=== PATIENT | female | born 1935 | race American Indian/Alaskan Native ===

== ENCOUNTER 2016-07-31 21:23 | Inpatient (IN) | payer OTHER ==
[2016-07-31 22:14] LABS: Basophils % (Auto) 0.3 % (0.0-1.8); Eosinophils % (Auto) 0.6 % (0.0-4.3); Mean Corpuscular HGB Conc 31 % (30-34); Mean Corpuscular Volume 80 fl (79-97); Platelet Count 393 K/mm3 (140-440); Red Blood Count 2.01 M/mm3 (3.65-5.03); Red Cell Distribution Width 16.9 % (13.2-15.2); White Blood Count 13.7 K/mm3 (4.5-11.0)
[2016-07-31 22:25] LABS: INR 1.05 (0.87-1.13)
[2016-07-31 22:26] LABS: Partial Thromboplastin Time 29.3 Sec. (24.2-36.6)
[2016-07-31 22:29] LABS: Hemoglobin 4.9 gm/dl (10.1-14.3)
[2016-07-31 22:30] LABS: Hematocrit 16.1 % (30.3-42.9); Mean Corpuscular Hemoglobin 25 pg (28-32)
[2016-07-31 22:33] LABS: Alanine Aminotransferase 5 units/L (7-56); Albumin 2.7 g/dL (3.9-5); Alkaline Phosphatase 78 units/L (35-129); Anion Gap 17 mmol/L; BUN/Creatinine Ratio 26.42; Bilirubin,Total < 0.20 mg/dL (0.1-1.2); Blood Urea Nitrogen 37 mg/dL (7-17); Carbon Dioxide 22 mmol/L (22-30); Chloride 95.9 mmol/L (98-107); Glucose 111 mg/dL (65-100); Potassium 5.8 mmol/L (3.6-5.0); Sodium 129 mmol/L (137-145); Total Protein 5.4 g/dL (6.3-8.2)
--- NOTE | 2016-07-31 23:03 | XRay Report ---
FINAL REPORT EXAM: XR CHEST ROUTINE 2V HISTORY: CHEST PAIN TECHNIQUE: PA and lateral views of the chest PRIORS: None. FINDINGS: Lines, tubes, and devices: N/A Lungs and pleura: Trachea is normal in position. Lungs are clear of infiltrate, pleural effusion, vascular congestion, or pneumothorax. Cardiomediastinal silhouette: Cardiac and mediastinal silhouettes are unremarkable. Other: Bony structures demonstrate a dextroscoliosis of the thoracic spine. IMPRESSION: No acute cardiopulmonary process seen.
--- NOTE | 2016-07-31 23:16 | Cat Scan Report ---
FINAL REPORT EXAM: CT HEAD/BRAIN WO CON HISTORY: numbness, falls COMPARISON: None available. TECHNIQUE: Axial images obtained skull base through vertex. FINDINGS: No acute intracranial hemorrhage, midline shift or pathologic extra axial fluid collection. Ventricles and cisterns are normal in size and configuration for the patient's age. Walden-white differentiation preserved. Calvarium grossly intact. Mild chronic small vessel ischemic disease. Mild mucosal thickening the paranasal sinuses. Mastoid air cells are clear. Probable prior cataract surgery. IMPRESSION: No grossly acute intracranial abnormality. Mild chronic small vessel ischemic disease.
--- NOTE | 2016-07-31 23:18 | Cat Scan Report ---
FINAL REPORT EXAM: CT CERVICAL SPINE WO CON HISTORY: numbness, falls COMPARISON: None available. TECHNIQUE: Axial images obtained through the cervical spine. Additional sagittal and coronal reformatted images were obtained. FINDINGS: Straightening of the normal lordotic curvature of the cervical spine. Cervical vertebral body heights are preserved. No acute fracture or traumatic subluxation. Odontoid process, articular pillars and occipital condyles are intact. Moderate severe loss of disc height C3-C4 through C6-C7 levels. Mild to moderate canal stenosis and moderate foramina ring at those levels due to endplate osteophyte, uncovertebral hypertrophy and facet changes. Prominent calcification of carotid siphons. Mild scarring at the lung apices. IMPRESSION: No acute fracture or subluxation of the cervical spine. There is straightening of the normal lordotic curvature which may relate to patient positioning or muscle spasm. Moderate degenerative changes.
[2016-07-31] MEDS ORDERED: NACL 0.9% 500 ML 500 ML IV ONE (23:26)
[2016-07-31 23:57] LABS: Urine Drugs of Abuse Note Disclamer
--- NOTE | 2016-07-31 23:59 | Emergency Department Report ---
HPI - General Chief Complaint: Neuro Symptoms/Deficit Time Seen by Provider: 07/31/16 22:49 - HPI HPI: This is a 80-year-old female presents to the emergency department from home with complaint of some generalized weakness, increased fatigue, recent falls over the past few days. The granddaughter went to check on her and thought that she was appearing as if she was having some difficulty speaking and /or was slurring her speech. She is not taken anything for symptoms prior to presentation. She has a past medical history of coronary artery disease with NJ , CVA, and was recently treated at another hospital for pancreatitis and some unknown "liver swelling." She has some mild abdominal discomfort. There is a history of rectal bleeding in the past but she denies any obvious bleeding now but does admit to some darker stools. The patient does not speak any Green[place]ic but the mid-level provider, Matthias Madsen, was nice enough to translate. ED Past Medical Hx - Past Medical History Previous Medical History?: Yes Additional medical history: Liver swelling? NJ, CAD, Heart Cath, CVA, Pancreatitis - Surgical History Past Surgical History?: Yes Additional Surgical History: Heart. Reversed Colostomy - Social History Smoking Status: Never Smoker Substance Use Type: None - Medications Home Medications: Home Medications Medication Instructions Recorded Confirmed Last Taken Type Aldactone 100 mg PO DAILY 08/01/16 08/01/16 Unknown History Coreg 12.5 mg PO BID 08/01/16 08/01/16 Unknown History Dicyclomine 20 mg PO DAILY 08/01/16 08/01/16 Unknown History Enalapril Maleate 20 mg PO DAILY 08/01/16 08/01/16 Unknown History Plavix 75 mg PO DAILY 08/01/16 08/01/16 Unknown History ED Review of Systems ROS: Stated complaint: NUMBNESS IN ARMS AND TONUGE Other details as noted in HPI Comment: Unobtainable due to pts medical conditions Constitutional: weakness. denies: chills, fever Eyes: denies: eye pain, eye discharge, vision change ENT: denies: ear pain, throat pain Respiratory: denies: cough, shortness of breath, wheezing Cardiovascular: denies: chest pain, palpitations Gastrointestinal: abdominal pain, melena. denies: nausea, vomiting Genitourinary: denies: urgency, dysuria, discharge Musculoskeletal: denies: back pain, joint swelling, arthralgia Skin: denies: rash, lesions Neurological: weakness, paresthesias. denies: headache Physical Exam - Physical Exam Vital Signs: Vital Signs 07/31/16 21:35 Temperature 98.3 F Pulse Rate 70 Respiratory 14 Rate Blood Pressure 110/50 [Right] O2 Sat by Pulse 100 Oximetry Physical Exam: GENERAL: The patient is well-developed well-nourished. HEENT: Normocephalic. Atraumatic. Extraocular motions are intact. Patient has moist mucous membranes. Pupils equal reactive to light bilaterally. NECK: Supple. Trachea is midline. CHEST/LUNGS: Clear to auscultation. There is no respiratory distress noted. HEART/CARDIOVASCULAR: Regular. There is no tachycardia. There is no gallop rub or murmur. ABDOMEN: Abdomen is soft, nontender. Patient has normal bowel sounds. There is no abdominal distention. SKIN: There is no rash. There is no edema. There is no diaphoresis. NEURO: The patient is awake, alert, and oriented. The patient is cooperative. The patient has no focal neurologic deficits. The patient has normal speech. No pronator drift. No dysmetria. MUSCULOSKELETAL: There is no tenderness or deformity. There is no limitation range of motion. There is no evidence of acute injury. RECTAL: No gross blood. Stool was positive on guaiac testing. ED Course Vital Signs 07/31/16 21:35 Temperature 98.3 F Pulse Rate 70 Respiratory 14 Rate Blood Pressure 110/50 [Right] O2 Sat by Pulse 100 Oximetry - Consultations Consultation #1: I spoke with the record press operator regarding the patient's EKG findings and he does not feel that it appears consistent with any ST elevation NJ. 07/31/16 23:58 ED Medical Decision Making - Lab Data Result diagrams: 08/01/16 07:00 08/01/16 07:00 - EKG Data -: EKG Interpreted by Me EKG shows normal: sinus rhythm, axis, intervals, QRS complexes (ST depressions and T-wave inversions to the lateral leads, there is a mild ST elevation in aVR) - EKG Data When compared to previous EKG there are: previous EKG unavailable Interpretation: other (sinus rhythm, 68 bpm, normal axis, ST depression in lateral leads and T-wave inversion in lateral leads, slight ST elevation in aVR. ) - Radiology Data Radiology results: report reviewed, image reviewed interpreted by me: Chest x-ray did not show any acute process. Heart is normal shape and size. No effusions. No pneumothorax. No signs of pneumonia seen. Abdominal x-ray does not show any obvious signs of obstruction. There are some air-fluid levels throughout the abdomen. CT of the head does not show any acute process including no hemorrhage, mass, shift, diffuse edema or skull fracture. CT of the cervical spine does not show any fractures, subluxation or any acute process. - Medical Decision Making 80-year-old female presents with a few days of some increased fatigue and weakness, and possibly some slurred speech. Patient does not appear to have any obvious signs of stroke at this time and patient is outside the window for any TPA. There was some history of rectal bleeding so a guaiac testing was done and was positive but there was no gross blood seen. Patient had hemoglobin of 4.8 so some of this could've been symptomatically anemia. She was transfused 3 units of packed red blood cells. CT of the head and cervical spine did not show any acute process. Patient had hyperkalemia, some hyponatremia. She was admitted to the hospital for further evaluation and treatment accepted for admission by the hospitalist, Dr. Llanos - Differential Diagnosis CVA, symptomatically anemia, NJ, malignancy, hemorrhoids Critical Care Time: No Critical care attestation.: If time is entered above; I have spent that time in minutes in the direct care of this critically ill patient, excluding procedure time. ED Disposition Clinical Impression: Symptomatic anemia, Weakness, Rectal bleed, Hyponatremia, Renal insufficiency, Hyperkalemia UTI (urinary tract infection) Qualifiers: Urinary tract infection type: acute cystitis Hematuria presence: without hematuria Qualified Code(s): N30.00 - Acute cystitis without hematuria Disposition: OP ADMIT IP TO THIS HOSP Is pt being admited?: Yes Condition: Stable
[2016-08-01 00:25] LABS: Bacteria,Urine 4+ /HPF (Negative); Bilirubin,Urine NEG (Negative); Blood,Urine LG (Negative); Ketones,Urine NEG (Negative); Leukocyte Esterase,Urine LG (Negative); Mucus,Urine FEW /HPF; Nitrite,Urine NEG (Negative); Protein,Urine <15 mg/dL mg/dL (Negative); Urobilinogen,Urine < 2.0 mg/dL (<2.0)
[2016-08-01] MEDS ORDERED: ROCEPHIN/NS 1 GM/50 ML 1 GM/50 ML BAG IV ONE (00:38)
[2016-08-01] MEDS ORDERED: KIONEX PO ONE (00:39)
[2016-08-01] MEDS ORDERED: PROVENTIL IH ONE ×2 (00:39→01:05)
--- NOTE | 2016-08-01 04:39 | Admit Criteria Form ---
Admission Criteria Documentation: URINARY COMPLICATIONS Clinical Indications for Inpatient Care (Place 'X' for any and all applicable criteria): Ongoing inpatient care may be indicated for urinary complications with ANY ONE of the following: [X ]I. Urinary tract infection requiring inpatient care as indicated by ANY ONE of the following(8)(19)(20): [ ]a) Severe symptoms (eg, high fever, severe pain) [ ]b) Vomiting or dehydration requiring ongoing inpatient care [X ]c) IV antibiotic needs that cannot be managed at lower level of care [ ]d) Hemodynamic instability [ ]e) Obstruction of collecting system by stone or tumor [ ]II. Urinary retention requiring drainage or surgery (3)(4)(5)(17)(18) [ ]III. Renal failure (Use Renal Failure Criteria for further information.) [ ]IV. Oliguria(30) [ ]V. Post obstructive diuresis requiring close monitoring of urine output and intravenous compensation for excessive fluid losses(33) Extended stay beyond goal length of stay for primary condition may be needed until ALL of the following are present(3)(4)(5)(8): [ ]a) Renal function (creatinine) at baseline, or daily decreases in creatinine consistent with renal function return [ ]b) Voiding adequately or with urinary catheter or percutaneous suprapubic tube and management regimen in place that is performable at lower level of care. [ ]c) Urine output adequate [ ]d) Fever absent or resolving [ ]e) Infection absent or treatable at next level of care The original [employer] content created by [employer] has been revised. The portions of the content which have been revised are identified through the use of italic text or in bold, and [facility] has neither reviewed nor approved the modified material. All other unmodified content is copyright [employer] Please see references footnoted in the original [employer] edition 2016 Admission Criteria Met: Yes
[2016-08-01] MEDS ORDERED: NACL 0.9% 500 ML 500 ML ONE (04:52)
--- NOTE | 2016-08-01 06:36 | Event Note ---
Date: 08/01/16 See H/p in reports Acute Anemia Hyponatremia Hyperkalemia UTI CAD CVA
[2016-08-01] MEDS: NACL 0.9% 1000 ML 1,000 ML IV SCH (07:08)
[2016-08-01 07:53] LABS: Albumin 2.5 g/dL (3.9-5); Alkaline Phosphatase 63 units/L (35-129); Anion Gap 15 mmol/L; Blood Urea Nitrogen 30 mg/dL (7-17); Calcium 7.7 mg/dL (8.4-10.2); Carbon Dioxide 22 mmol/L (22-30); Chloride 103.4 mmol/L (98-107); Glucose 100 mg/dL (65-100); Potassium 5.1 mmol/L (3.6-5.0); Sodium 135 mmol/L (137-145)
[2016-08-01 07:55] LABS: Total Iron Binding Capacity 361.2 mcg/dL (250-450)
--- NOTE | 2016-08-01 08:21 | History and Physical Report ---
CHIEF COMPLAINT: 1. Severe weakness. 2. Frequent falls over the past few days. HISTORY OF PRESENT ILLNESS: This 80-year-old female brought in for feeling severe weakness and increasing fatigue over the last few days, also falling frequently. She granddaughter was visiting her grandmother and thought she was having difficulty speaking and slurring of speech and brought her to the Emergency Room thinking that the patient is having a stroke. The patient has history of coronary artery disease and cerebrovascular accident in the past. Also, pancreatitis and GI bleeding in the past. Denies any bleeding now, but has dark stools. Also occult blood positive in the Emergency Room. PAST MEDICAL HISTORY: Significant for coronary artery disease, cerebrovascular accident, pancreatitis, acute MS and a questionable GI bleed. Language barrier present for proper history. PAST SURGICAL HISTORY: Reverse colostomy. SOCIAL HISTORY: Does not smoke. No alcohol, no recreational drugs. FAMILY HISTORY: Significant for no hypertension, no diabetes. REVIEW OF SYSTEMS: CONSTITUTIONAL: No weight loss, no weight gain, no fever, no chills. HEENT: No sore throat, no postnasal drip. No diplopia. CARDIOVASCULAR AND RESPIRATORY: Shortness of breath was present with minimal exertion. No chest pain. No wheezing. No cough. GASTROINTESTINAL: No nausea, no vomiting, no diarrhea. GENITOURINARY: No dysuria, no flank pain. MUSCULOSKELETAL: No joint pains. CENTRAL NERVOUS SYSTEM: No syncope, no seizures. No slurred speech during examination. A 14-point review of systems was done. PHYSICAL EXAMINATION: GENERAL: Elderly female lying in bed in no acute distress. VITAL SIGNS: Temperature 98.3, pulse is 70, respirations 14, blood pressure 110/50, sats 100%. HEENT: Pale mucous membranes. Tongue is pale. NECK: Supple, no lymphadenopathy, no thyromegaly. LUNGS: Clear to auscultation and percussion. Good air entry. CARDIOVASCULAR: S1, S2 heard. No gallop, no murmur, no rub. Apical impulse in left fifth intercostal space and midclavicular line. ABDOMEN: Soft and benign. No hepatosplenomegaly. No guarding, no rigidity. Hernial orifices are normal. EXTREMITIES: Good pedal pulses. No pedal edema. CENTRAL NERVOUS SYSTEM: Alert and oriented x 4, nonfocal exam. LABORATORY DATA: Significant for hemoglobin of 4.9, hematocrit of 16.1, white count of 13,700, platelet count of 393,000. Protime is 13.6, INR is 1.05, PTT is 29.3. Sodium is 129, potassium is 5.8, chloride is 95.9, bicarbonate is 22, BUN and creatinine 37 and 1.4. Lactic acid is 0.9. Glucose is 111. Total protein is 5.4, albumin is 2.7. Urine shows 43 white cells. Drug screen was negative. EKG shows normal sinus rhythm with ST depression and T-wave inversions in the lateral leads and mild ST elevation in AVR. Previous EKG on arrival. ASSESSMENT AND PLAN: 1. Acute anemia, probably secondary to gastrointestinal bleed or nutritional. The patient's MCH is low, MCV is normal. I will order iron studies, folate and B12 levels. Also, transfuse 3 to 4 units of packed red blood cells. Order for 3 units now. 2. Gastrointestinal bleed, high possibility. Occult blood positive. No bright red blood per rectum. We will ask for GI evaluation by Dr. Ritter in [facility]. IV Protonix in the meantime. 3. Hyponatremia, mild. Sodium level was 129. Normal saline for now, 3% saline if necessary. 4. Hyperkalemia. The patient was given Kayexalate x 1 in the ER. We will recheck the potassium. The patient was not given any calcium chloride or sodium bicarbonate or dextrose 50 with insulin. 5. Urinary tract infection. Rocephin 2 grams IV piggyback q. 24 started. Pending cultures. 6. Coronary artery disease by history. EKG was abnormal. Once the patient is stable, we will get Lexiscan. No Lexiscan ordered for tomorrow. 7. Cerebrovascular accident. Physical therapy consult was ordered. PT to evaluate and treat. 8. Deep venous thrombosis prophylaxis, SCDs only for the time being. In summary, the patient has acute anemia, possibly secondary to nutrition versus GI bleed and hyponatremia, hyperkalemia and urinary tract infection. Also, history of moderate malnutrition. Dietitian consult requested for nutrition. JOB# [id number] VSM/NTS
[2016-08-01 08:25] LABS: Alanine Aminotransferase < 5 units/L (7-56)
--- NOTE | 2016-08-01 09:49 | XRay Report ---
ABDOMEN, 2 views: History: Abdominal pain. No comparison. There are multiple small and medium size fluid levels on the upright view. No convincing dilated bowel or free air. There is moderate stool in the colon. The lung bases are clear. The bony structures are osteopenic. Levoscoliosis in the lumbar region is noted. IMPRESSION: Scattered fluid levels in the abdomen. Consider a mild ileus or gastroenteritis.
[2016-08-01] MEDS ORDERED: PROTONIX IV SCH (10:00)
[2016-08-01] MEDS ORDERED: NON-FORMULARY (Coreg 12.5 MG) PO SCH (10:00)
[2016-08-01] MEDS ORDERED: DICYCLOMINE 20 MG PO SCH (10:00)
[2016-08-01] MEDS ORDERED: ENALAPRIL MALEATE 20 MG PO SCH (10:00)
[2016-08-01] MEDS: COREG PO SCH ×2 (10:01→22:49)
[2016-08-01] MEDS: ZESTRIL PO SCH (10:02)
[2016-08-01 10:11] LABS: Hematocrit 18.1 % (30.3-42.9); Hemoglobin 5.8 gm/dl (10.1-14.3)
[2016-08-01] MEDS: ROCEPHIN/NS 1 GM/50 ML 1 GM/50 ML BAG IV SCH (11:33)
[2016-08-01] MEDS: BENTYL PO SCH (11:34)
--- NOTE | 2016-08-01 14:21 | Gastroenterology Consultation ---
History of Present Illness - Reason for Consult Consult date: 08/01/16 occult gi bleeding Requesting physician: ALEM CURRY - History of Present Illness The patient is a 80-year-old female from [facility] who has the family brought in because of progressive weakness. She was found to have a hemoglobin of 4.7 with an MCV of 80. On further questioning the patient has been having intermittent black stools for the past year. She denies any passage of bright red blood per rectum. The patient does have meal trigger diarrhea reports having a CT scan done and [facility] to evaluate this complaint. There were no abnormal findings according to the family. She has lost approximately 20 pounds over 60 years but reports a pretty good appetite overall. Prior history of peptic ulcer disease. The patient's never had an upper endoscopy or colonoscopy. There is no family history of colon cancer. He has been on Plavix because of a previous heart attack approximately 4 months ago. The patient has had no recent chest pain or shortness of breath. Past History Past Medical History: CAD Past Surgical History: No surgical history Social history: lives with family, smoking (her history of smoking), alcohol abuse (remote history of alcohol use.) Family history: no significant family history Medications and Allergies Allergies Allergy/AdvReac Type Severity Reaction Status Date / Time No Known Allergies Allergy Verified 07/31/16 21:46 Home Medications Medication Instructions Recorded Confirmed Last Taken Type Aldactone 100 mg PO DAILY 08/01/16 08/01/16 Unknown History Coreg 12.5 mg PO BID 08/01/16 08/01/16 Unknown History Dicyclomine 20 mg PO DAILY 08/01/16 08/01/16 Unknown History Enalapril Maleate 20 mg PO DAILY 08/01/16 08/01/16 Unknown History Plavix 75 mg PO DAILY 08/01/16 08/01/16 Unknown History Active Meds: Active Medications Carvedilol (Coreg) 12.5 mg PO BID [facility] Last Admin: 08/01/16 10:01 Dose: Not Given Dicyclomine HCl (Bentyl) 20 mg PO DAILY [facility] Last Admin: 08/01/16 11:34 Dose: Not Given Sodium Chloride (Nacl 0.9% 1000 Ml) 1,000 mls @ 75 mls/hr IV DIRECT [facility] Last Admin: 08/01/16 07:08 Dose: 75 mls/hr Ceftriaxone Sodium (Rocephin/Ns 1 Gm/50 Ml) 1 gm in 50 mls @ 100 mls/hr IV Q24HR [facility] PRN Reason: Protocol Last Admin: 08/01/16 11:33 Dose: Not Given Lisinopril (Zestril) 20 mg PO QDAY [facility] Last Admin: 08/01/16 10:02 Dose: Not Given Pantoprazole Sodium (Protonix) 40 mg IV BID [facility] Last Admin: 08/01/16 11:33 Dose: Not Given Review of Systems - Review of Systems Constitutional: weight loss, no fever, no chills Eyes: no change in vision Ears, Nose, Throat: no decreased hearing, no difficulty swallowing, no epistaxis Breasts: deferred Cardiovascular: no chest pain, no edema, no shortness of breath Respiratory: no cough, no shortness of breath, no wheezing, no home oxygen Gastrointestinal: diarrhea, melena, no abdominal pain, no nausea, no vomiting, no constipation, no change in bowel habits, no BRBPR, no hematochezia Rectal: no pain, no incontinence Female Genitourinary: deferred Musculoskeletal: no gait dysfunction, no joint pain, no muscle pain Integumentary: no rash, no pruritis, no jaundice Neurological: no paralysis, no weakness, no parasthesias Psychiatric: no anxiety, no memory loss Endocrine: no cold intolerance Hematologic/Lymphatic: no easy bruising, no easy bleeding Exam - Constitutional Vital Signs: Temp Pulse Resp BP Pulse Ox 98.5 F 65 18 94/41 100 08/01/16 07:00 08/01/16 07:00 08/01/16 07:00 08/01/16 10:02 08/01/16 11:43 General appearance: no acute distress, well-nourished - EENT Eyes: PERRL ENT: hearing intact, clear oral mucosa, dentition normal - Neck Neck: supple, normal ROM, no masses or JVD - Respiratory Respiratory effort: normal Respiratory: bilateral: CTA - Breasts Breasts: deferred - Cardiovascular Rhythm: regular Heart Sounds: Present: S1 & S2. Absent: gallop, rub Extremities: pulses intact, No edema, normal color, Full ROM - Gastrointestinal General gastrointestinal: Present: soft, non-tender, non-distended, normal bowel sounds. Absent: hepatomegaly, splenomegaly, mass Rectal Exam: deferred - Genitourinary Female Genitourinary: deferred - Integumentary Integumentary: Present: clear, warm, dry - Neurologic Neurological: alert and oriented x3 - Psychiatric Psychiatric: appropriate mood/affect, intact judgment & insight, memory intact - Labs CBC & Chem 7: 08/01/16 07:00 08/01/16 07:00 Lab Results: Laboratory Results - last 24 hr 08/01/16 08/01/16 08/01/16 00:44 00:44 00:44 Hgb Hct Sodium Potassium Chloride Carbon Dioxide Anion Gap BUN Creatinine Estimated GFR BUN/Creatinine Ratio Glucose Lactic Acid 2.10 H* Calcium Iron TIBC % Saturation Transferrin Total Bilirubin AST ALT Alkaline Phosphatase Troponin T < 0.010 Total Protein Albumin Albumin/Globulin Ratio Vitamin B12 Blood Type O POSITIVE JOEL Antibody Screen Negative Crossmatch See Detail 08/01/16 08/01/16 08/01/16 07:00 07:00 07:00 Hgb Hct Sodium 135 L Potassium 5.1 H Chloride 103.4 Carbon Dioxide 22 Anion Gap 15 BUN 30 H Creatinine 1.2 Estimated GFR 53 BUN/Creatinine Ratio 25.00 Glucose 100 Lactic Acid Calcium 7.7 L Iron 46 TIBC 361.20 % Saturation 12.74 Transferrin 258 Total Bilirubin 0.30 AST 9 ALT < 5 L Alkaline Phosphatase 63 Troponin T < 0.010 Total Protein 5.0 L Albumin 2.5 L Albumin/Globulin Ratio 1.0 Vitamin B12 Blood Type JOEL Antibody Screen Crossmatch 08/01/16 08/01/16 07:00 07:00 Hgb 5.8 L* Hct 18.1 L* Sodium Potassium Chloride Carbon Dioxide Anion Gap BUN Creatinine Estimated GFR BUN/Creatinine Ratio Glucose Lactic Acid Calcium Iron TIBC % Saturation Transferrin Total Bilirubin AST ALT Alkaline Phosphatase Troponin T Total Protein Albumin Albumin/Globulin Ratio Vitamin B12 706.1 Blood Type JOEL Antibody Screen Crossmatch Assessment and Plan - Patient Problems (1) Renal insufficiency Current Visit: Yes Status: Acute (2) Symptomatic anemia Current Visit: Yes Status: Acute (3) Melena Current Visit: Yes Status: Acute Plan to address problem: Plan for upper and lower endoscopy prior to leaving the hospital. Presently she has been partially transfused. The patient currently does not have an IV access to complete further transfusion and the studies may therefore be delayed. I have discussed the nature and purpose of the procedure as well as risks benefits and alternatives with the patient's family.
--- NOTE | 2016-08-01 14:30 | Progress Note ---
Assessment and Plan Assessment and plan: Patient is 80-year-old Anguillan-speaking woman with a history of [place], CVA, pancreatitis, coronary artery disease who presents with weakness, fatigue. Guaiac positive with a hemoglobin of 4.9. 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 Follow up on weakness. Overnight uneventful. No cp, sob, n/v or severe headaches. Imaging, old records, testing, labs, nursing notes reviewed. Patient has been losing weight unintentionally, unspecified amount. Hospitalist Physical - Physical exam Narrative exam: GEN: Cachectic NAD, AWAKE, ALERT, ORIENTATED x 3 CVS: RRR, NORMAL S1S2 LUNGS/CHEST: CTA B, NORMAL CHEST EXPANSION B, GOOD AIR ENTRY B ABD: SOFT, NTND, GBS, NO REBOUND OR GUARDING EXT/SKIN: NO SIGNIFICANT EDEMA OR RASH MSK: FROM X 4 EXTREMITIES NEURO: CN 2-12 GROSSLY INTACT, NO FOCAL DEFICITS PSY: CALM - Constitutional Vitals: Temp Pulse Resp BP Pulse Ox 98.5 F 65 18 94/41 100 08/01/16 07:00 08/01/16 07:00 08/01/16 07:00 08/01/16 10:02 08/01/16 11:43 Results - Labs CBC & Chem 7: 08/01/16 07:00 08/01/16 07:00 Labs: Laboratory Last Values WBC 13.7 K/mm3 (4.5-11.0) H 07/31/16 22:02 RBC 2.01 M/mm3 (3.65-5.03) L 07/31/16 22:02 Hgb 5.8 gm/dl (10.1-14.3) L* 08/01/16 07:00 Hct 18.1 % (30.3-42.9) L* 08/01/16 07:00 MCV 80 fl (79-97) 07/31/16 22:02 MCH 25 pg (28-32) L 07/31/16 22:02 MCHC 31 % (30-34) 07/31/16 22:02 RDW 16.9 % (13.2-15.2) H 07/31/16 22:02 Plt Count 393 K/mm3 (140-440) 07/31/16 22:02 Lymph % (Auto) 14.7 % (13.4-35.0) 07/31/16 22:02 [place] % (Auto) 5.8 % (0.0-7.3) 07/31/16 22:02 Eos % (Auto) 0.6 % (0.0-4.3) 07/31/16 22:02 Baso % (Auto) 0.3 % (0.0-1.8) 07/31/16 22:02 Lymph # 2.0 K/mm3 (1.2-5.4) 07/31/16 22:02 [place] # 0.8 K/mm3 (0.0-0.8) 07/31/16 22:02 Eos # 0.1 K/mm3 (0.0-0.4) 07/31/16 22:02 Baso # 0.0 K/mm3 (0.0-0.1) 07/31/16 22:02 Seg Neutrophils % 78.6 % (40.0-70.0) H 07/31/16 22:02 Seg Neutrophils # 10.8 K/mm3 (1.8-7.7) H 07/31/16 22:02 PT 13.6 Sec. (12.2-14.9) 07/31/16 22:02 INR 1.05 (0.87-1.13) 07/31/16 22:02 APTT 29.3 Sec. (24.2-36.6) 07/31/16 22:02 Sodium 135 mmol/L (137-145) L 08/01/16 07:00 Potassium 5.1 mmol/L (3.6-5.0) H 08/01/16 07:00 Chloride 103.4 mmol/L (98-107) 08/01/16 07:00 Carbon Dioxide 22 mmol/L (22-30) 08/01/16 07:00 Anion Gap 15 mmol/L 08/01/16 07:00 BUN 30 mg/dL (7-17) H 08/01/16 07:00 Creatinine 1.2 mg/dL (0.7-1.2) 08/01/16 07:00 Estimated GFR 53 ml/min 08/01/16 07:00 BUN/Creatinine Ratio 25.00 % 08/01/16 07:00 Glucose 100 mg/dL (65-100) 08/01/16 07:00 Lactic Acid 2.10 mmol/L (0.7-2.0) H* 08/01/16 00:44 Calcium 7.7 mg/dL (8.4-10.2) L 08/01/16 07:00 Magnesium 1.80 mg/dL (1.7-2.3) 07/31/16 22:02 Iron 46 ug/dL (37-170) 08/01/16 07:00 TIBC 361.20 mcg/dL (250-450) 08/01/16 07:00 % Saturation 12.74 % 08/01/16 07:00 Transferrin 258 mg/dl (192-382) 08/01/16 07:00 Total Bilirubin 0.30 mg/dL (0.1-1.2) 08/01/16 07:00 AST 9 units/L (5-40) 08/01/16 07:00 ALT < 5 units/L (7-56) L 08/01/16 07:00 Alkaline Phosphatase 63 units/L (35-129) 08/01/16 07:00 Troponin T < 0.010 ng/mL (0.00-0.029) 08/01/16 07:00 Total Protein 5.0 g/dL (6.3-8.2) L 08/01/16 07:00 Albumin 2.5 g/dL (3.9-5) L 08/01/16 07:00 Albumin/Globulin Ratio 1.0 % 08/01/16 07:00 Lipase 29 units/L (13-60) 07/31/16 22:02 Vitamin B12 706.1 pg/mL (211-911) 08/01/16 07:00 TSH 2.390 mlU/mL (0.270-4.200) 07/31/16 22:02 Urine Color Yellow (Yellow) 07/31/16 Unknown Urine Turbidity Cloudy (Clear) 07/31/16 Unknown Urine pH 6.0 (5.0-7.0) 07/31/16 Unknown Ur Specific [place] 1.006 (1.003-1.030) 07/31/16 Unknown Urine Protein <15 mg/dl mg/dL (Negative) 07/31/16 Unknown Urine Glucose (UA) Neg mg/dL (Negative) 07/31/16 Unknown Urine Ketones Neg mg/dL (Negative) 07/31/16 Unknown Urine Blood Lg (Negative) 07/31/16 Unknown Urine Nitrite Neg (Negative) 07/31/16 Unknown Urine Bilirubin Neg (Negative) 07/31/16 Unknown Urine Urobilinogen < 2.0 mg/dL (<2.0) 07/31/16 Unknown Ur Leukocyte Esterase Lg (Negative) 07/31/16 Unknown Urine WBC (Auto) 43.0 /HPF (0.0-6.0) H 07/31/16 Unknown Urine RBC (Auto) 18.0 /HPF (0.0-6.0) 07/31/16 Unknown U Epithel Cells (Auto) 1.0 /HPF (0-13.0) 07/31/16 Unknown Urine Bacteria (Auto) 4+ /HPF (Negative) 07/31/16 Unknown Urine Mucus Few /HPF 07/31/16 Unknown Salicylates < 0.3 mg/dL (2.8-20.0) L 07/31/16 22:02 Urine Opiates Screen Presumptive negative 07/31/16 Unknown Urine Methadone Screen Presumptive negative 07/31/16 Unknown Acetaminophen < 15.0 ug/mL (10.0-30.0) 07/31/16 22:02 Ur Barbiturates Screen Presumptive negative 07/31/16 Unknown Ur Phencyclidine Scrn Presumptive negative 07/31/16 Unknown Ur Amphetamines Screen Presumptive negative 07/31/16 Unknown U Benzodiazepines Scrn Presumptive negative 07/31/16 Unknown Urine Cocaine Screen Presumptive negative 07/31/16 Unknown U Marijuana (THC) Screen Presumptive negative 07/31/16 Unknown Drugs of Abuse Note Disclamer 07/31/16 Unknown Plasma/Serum Alcohol < 0.01 gm% (0-0.07) 07/31/16 22:02 Blood Type O POSITIVE 08/01/16 00:44 JOEL Antibody Screen Negative 08/01/16 00:44 Crossmatch See Detail 08/01/16 00:44
[2016-08-01] MEDS ORDERED: GOLYTELY PO SCH ×2 (15:00→19:00)
[2016-08-01] MEDS ORDERED: ROCEPHIN/NS 2 GM/100 ML 2 GM/100 ML BAG IV SCH (22:00)
[2016-08-01] MEDS: PROTONIX PO SCH (22:48)
[2016-08-02 07:20] LABS: Hematocrit 26.1 % (30.3-42.9); Mean Corpuscular HGB Conc 35 % (30-34); Mean Corpuscular Hemoglobin 29 pg (28-32); Mean Corpuscular Volume 83 fl (79-97); Platelet Count 350 K/mm3 (140-440); Red Blood Count 3.15 M/mm3 (3.65-5.03); Red Cell Distribution Width 16.8 % (13.2-15.2); White Blood Count 7.4 K/mm3 (4.5-11.0)
[2016-08-02 07:37] LABS: Anion Gap 23 mmol/L; BUN/Creatinine Ratio 15.55; Blood Urea Nitrogen 14 mg/dL (7-17); Calcium 8.2 mg/dL (8.4-10.2); Carbon Dioxide 22 mmol/L (22-30); Chloride 102.8 mmol/L (98-107); Glucose 89 mg/dL (65-100); Potassium 4.3 mmol/L (3.6-5.0); Sodium 143 mmol/L (137-145)
[2016-08-02] MEDS: COREG PO SCH ×2 (10:00→21:37)
[2016-08-02] MEDS: PROTONIX PO SCH ×2 (10:00→21:28)
--- NOTE | 2016-08-02 10:06 | Progress Note ---
Assessment and Plan Assessment and plan: Patient is 80-year-old Iraqi-speaking woman with a history of [place], CVA, pancreatitis, coronary artery disease who presents with weakness, fatigue. Guaiac positive with a hemoglobin of 4.9. -Acute GI blood loss anemia status post blood transfusion: Consulted gastroenterology, monitor H&H closely -Hyperkalemia, mild, continue to monitor -Severe protein calorie malnutrition with albumin 2.5: Consult Dietitian -Hyponatremia, dehydration: ivf -Hypotension, mild, this maybe her baseline -Unintentional weight lost -DVT prophylaxis: SCDs only due to GI blood loss Called and d/w GI nurse practitioner, Sabine==>EGD and colonoscopy today? Iraqi Language Lined Used. ?Dementia or some form of cognitive impairment. Anticipate discharge tomorrow. History Interval history: Iraqi Language Lined Used. ?Dementia or some form of cognitive impairment. Patient seen and examined. Follow up on weakness. Overnight uneventful. No cp, sob, n/v or severe headaches. Imaging, old records, testing, labs, nursing notes reviewed. Patient has been losing weight unintentionally, unspecified amount. Hospitalist Physical - Physical exam Narrative exam: GEN: Cachectic NAD, AWAKE, ALERT, ORIENTATED x1 CVS: RRR, NORMAL S1S2 LUNGS/CHEST: CTA B, NORMAL CHEST EXPANSION B, GOOD AIR ENTRY B ABD: SOFT, NTND, GBS, NO REBOUND OR GUARDING EXT/SKIN: NO SIGNIFICANT EDEMA OR RASH MSK: FROM X 4 EXTREMITIES NEURO: CN 2-12 GROSSLY INTACT, NO FOCAL DEFICITS PSY: CALM - Constitutional Vitals: Temp Pulse Resp BP Pulse Ox 97.9 F 86 18 149/87 100 08/02/16 07:40 08/02/16 07:40 08/02/16 07:40 08/02/16 07:40 08/01/16 20:30 Results - Labs CBC & Chem 7: 08/02/16 06:21 08/02/16 06:21 Labs: Laboratory Last Values WBC 7.4 K/mm3 (4.5-11.0) 08/02/16 06:21 RBC 3.15 M/mm3 (3.65-5.03) L 08/02/16 06:21 Hgb 9.0 gm/dl (10.1-14.3) L D 08/02/16 06:21 Hct 26.1 % (30.3-42.9) L D 08/02/16 06:21 MCV 83 fl (79-97) D 08/02/16 06:21 MCH 29 pg (28-32) 08/02/16 06:21 MCHC 35 % (30-34) H 08/02/16 06:21 RDW 16.8 % (13.2-15.2) H 08/02/16 06:21 Plt Count 350 K/mm3 (140-440) 08/02/16 06:21 Lymph % (Auto) 14.7 % (13.4-35.0) 07/31/16 22:02 [place] % (Auto) 5.8 % (0.0-7.3) 07/31/16 22:02 Eos % (Auto) 0.6 % (0.0-4.3) 07/31/16 22:02 Baso % (Auto) 0.3 % (0.0-1.8) 07/31/16 22:02 Lymph # 2.0 K/mm3 (1.2-5.4) 07/31/16 22:02 [place] # 0.8 K/mm3 (0.0-0.8) 07/31/16 22:02 Eos # 0.1 K/mm3 (0.0-0.4) 07/31/16 22:02 Baso # 0.0 K/mm3 (0.0-0.1) 07/31/16 22:02 Seg Neutrophils % 78.6 % (40.0-70.0) H 07/31/16 22:02 Seg Neutrophils # 10.8 K/mm3 (1.8-7.7) H 07/31/16 22:02 PT 13.6 Sec. (12.2-14.9) 07/31/16 22:02 INR 1.05 (0.87-1.13) 07/31/16 22:02 APTT 29.3 Sec. (24.2-36.6) 07/31/16 22:02 Sodium 143 mmol/L (137-145) D 08/02/16 06:21 Potassium 4.3 mmol/L (3.6-5.0) 08/02/16 06:21 Chloride 102.8 mmol/L (98-107) 08/02/16 06:21 Carbon Dioxide 22 mmol/L (22-30) 08/02/16 06:21 Anion Gap 23 mmol/L 08/02/16 06:21 BUN 14 mg/dL (7-17) 08/02/16 06:21 Creatinine 0.9 mg/dL (0.7-1.2) 08/02/16 06:21 Estimated GFR > 60 ml/min 08/02/16 06:21 BUN/Creatinine Ratio 15.55 % 08/02/16 06:21 Glucose 89 mg/dL (65-100) 08/02/16 06:21 Lactic Acid 2.10 mmol/L (0.7-2.0) H* 08/01/16 00:44 Calcium 8.2 mg/dL (8.4-10.2) L 08/02/16 06:21 Magnesium 1.80 mg/dL (1.7-2.3) 07/31/16 22:02 Iron 46 ug/dL (37-170) 08/01/16 07:00 TIBC 361.20 mcg/dL (250-450) 08/01/16 07:00 % Saturation 12.74 % 08/01/16 07:00 Transferrin 258 mg/dl (192-382) 08/01/16 07:00 Total Bilirubin 0.30 mg/dL (0.1-1.2) 08/01/16 07:00 AST 9 units/L (5-40) 08/01/16 07:00 ALT < 5 units/L (7-56) L 08/01/16 07:00 Alkaline Phosphatase 63 units/L (35-129) 08/01/16 07:00 Troponin T < 0.010 ng/mL (0.00-0.029) 08/01/16 07:00 Total Protein 5.0 g/dL (6.3-8.2) L 08/01/16 07:00 Albumin 2.5 g/dL (3.9-5) L 08/01/16 07:00 Albumin/Globulin Ratio 1.0 % 08/01/16 07:00 Lipase 29 units/L (13-60) 07/31/16 22:02 Vitamin B12 706.1 pg/mL (211-911) 08/01/16 07:00 TSH 2.390 mlU/mL (0.270-4.200) 07/31/16 22:02 Urine Color Yellow (Yellow) 07/31/16 Unknown Urine Turbidity Cloudy (Clear) 07/31/16 Unknown Urine pH 6.0 (5.0-7.0) 07/31/16 Unknown Ur Specific [place] 1.006 (1.003-1.030) 07/31/16 Unknown Urine Protein <15 mg/dl mg/dL (Negative) 07/31/16 Unknown Urine Glucose (UA) Neg mg/dL (Negative) 07/31/16 Unknown Urine Ketones Neg mg/dL (Negative) 07/31/16 Unknown Urine Blood Lg (Negative) 07/31/16 Unknown Urine Nitrite Neg (Negative) 07/31/16 Unknown Urine Bilirubin Neg (Negative) 07/31/16 Unknown Urine Urobilinogen < 2.0 mg/dL (<2.0) 07/31/16 Unknown Ur Leukocyte Esterase Lg (Negative) 07/31/16 Unknown Urine WBC (Auto) 43.0 /HPF (0.0-6.0) H 07/31/16 Unknown Urine RBC (Auto) 18.0 /HPF (0.0-6.0) 07/31/16 Unknown U Epithel Cells (Auto) 1.0 /HPF (0-13.0) 07/31/16 Unknown Urine Bacteria (Auto) 4+ /HPF (Negative) 07/31/16 Unknown Urine Mucus Few /HPF 07/31/16 Unknown Salicylates < 0.3 mg/dL (2.8-20.0) L 07/31/16 22:02 Urine Opiates Screen Presumptive negative 07/31/16 Unknown Urine Methadone Screen Presumptive negative 07/31/16 Unknown Acetaminophen < 15.0 ug/mL (10.0-30.0) 07/31/16 22:02 Ur Barbiturates Screen Presumptive negative 07/31/16 Unknown Ur Phencyclidine Scrn Presumptive negative 07/31/16 Unknown Ur Amphetamines Screen Presumptive negative 07/31/16 Unknown U Benzodiazepines Scrn Presumptive negative 07/31/16 Unknown Urine Cocaine Screen Presumptive negative 07/31/16 Unknown U Marijuana (THC) Screen Presumptive negative 07/31/16 Unknown Drugs of Abuse Note Disclamer 07/31/16 Unknown Plasma/Serum Alcohol < 0.01 gm% (0-0.07) 07/31/16 22:02 Blood Type O POSITIVE 08/01/16 00:44 JOEL Antibody Screen Negative 08/01/16 00:44 Crossmatch See Detail 08/01/16 00:44
--- NOTE | 2016-08-02 10:41 | Anesthesia Day of Surgery ---
Anesthesia Day of Surgery - Day of Surgery Patient Examined: Yes Patient H&P Reviewed: Yes Patient is NPO: Yes
[2016-08-02] MEDS ORDERED: AMIDATE IV ONE ×2 (10:43→10:48)
[2016-08-02] MEDS ORDERED: DIPRIVAN 10 MG/ML IV ONE ×2 (10:43)
--- NOTE | 2016-08-02 10:43 | Anesthesia Consultation ---
Anesthesia Consult and Med Hx Date of service: 08/02/16 - Airway Anesthetic Teeth Evaluation: Dentures - Pulmonary Exam CTA: Yes - Cardiac Exam Cardiac Exam: RRR - Pre-Operative Health Status ASA Pre-Surgery Classification: ASA4 Proposed Anesthetic Plan: MAC - Pulmonary Hx Smoking: No Hx Respiratory Symptoms: Yes (chest hurt when inhales) - Cardiovascular System Hx Hypertension: Yes Hx Coronary Artery Disease: Yes Hx Heart Attack/AMI: Yes (3-4 months ago) Hx Percutaneous Transluminal Coronary Angioplasty (PTCA): Yes (? son is not sure ) - Central Nervous System CVA: Yes - Endocrine Hx Renal Disease: No Hx Liver Disease: No (pancreatitis) Hx Non-Insulin Dependent Diabetes: No - Additional Comments Anesthesia Medical History Comments: NAC
--- NOTE | 2016-08-02 11:26 | Operative Report ---
Operative Report Operative Report: Date of procedure: 08/02/2016 Procedure: Esophagogastroduodenoscopy with biopsies of the antrum for H. pylori. Preprocedure diagnosis: Severe iron deficiency anemia requiring transfusion. History of melena. Post procedure diagnosis: 1 cm stellate-shaped ulcer in the pyloric channel. Large duodenal diverticulum. Fundic diverticulum. Endoscopist: Dr. Amador Anesthesia: Monitored anesthesia care per anesthesia department Medications: Propofol per anesthesia. Estimated blood loss: 0 After careful discussion of the nature and purpose of the procedure as well as details the technique risks benefits and alternatives consent was obtained. The patient was placed in the left lateral decubitus position and medicated per anesthesia. The tip of the [employer] EQ 570 video scope was passed per orum under direct vision into the esophagus and advanced into the stomach and descending duodenum. There was a very large periampullary diverticulum present in the descending duodenum. Increased vascularity, possibly representing an AVM was also noted within the diverticulum. The third portion of the duodenum was normal. The duodenal bulb was normal. There was a 1 cm stellate-shaped ulcer with a flat base and margin in the pyloric channel. The scope was withdrawn into the stomach and the stomach then gently insufflated with air. The antrum was normal. Biopsies of the antrum were obtained for H. pylori. The stomach was further insufflated and the scope was then retroflexed and partially withdrawn. The cardia, fundus, and body of the stomach were within normal limits except for a small fundic diverticulum.the stomach was easily distensible. The scope was then withdrawn in the forward position. The esophagogastric junction was at 32 cm.. The esophageal body was normal throughout. The procedure was was well tolerated and the patient was observed in recovery. Impressions: 1 cm stellate-shaped ulcer in the pyloric channel consistent with the source of chronic blood loss and intermittent melena. Large duodenal diverticulum also a potential source of chronic intermittent bleeding. Plan: Await results of H. pylori testing. PPI therapy. Addition of antibiotics if Helicobacter pylori is present. Further evaluation with colonoscopy. Electronically signed: Kevin Amador MD
--- NOTE | 2016-08-02 11:30 | Operative Report ---
Operative Report Operative Report: Date of procedure: 08/02/2016 Preprocedure diagnosis: Severe anemia requiring transfusion. Iron deficiency state. Post procedure diagnosis: Large rectovaginal fistula with internal ulceration. Normal colon otherwise to the cecum. Procedure: Colonoscopy to the cecum Endoscopist: Dr. Amador Anesthesia: Monitored anesthesia care per anesthesia department Estimated blood loss: 0 Medications: Monitored anesthesia care. See separate report by anesthesia for details. After careful discussion of the nature and purpose of the procedure as well as details of the technique risks benefits and alternatives the patient gave consent. Please see recent history and physical from the office. The patient was placed in the left lateral decubitus position and medicated per anesthesia. A rectal exam was performed sphincter tone was normal. There was an internal deep cavity by palpation suspected to be a rectovaginal fistula on digital examination. The Accord 570 scope was passed transanally and advanced under continuous direct vision without difficulty to the cecum. The colon was well prepared. The cecum was normal. The ascending colon was normal and on forward and retroflexed views. The transverse colon, descending colon, and sigmoid colon were normal. The rectum revealed a deep ulcerated cavity suspected to connect with the vagina just inside the anal verge. There was no mass lesion. After removal of the scope, a digital exam through the vaginal side confirm the presence of a large rectovaginal fistula with the index finger easily passing through to the rectum. The procedure was well-tolerated overall and the patient was observed in recovery. Conclusions: Large rectovaginal fistula with internal ulceration, but no mass effect. Normal proximal colon to the cecum otherwise. Plan: The patient needs formal gynecologic evaluation. Signed electronically: Kevin Amador M.D.
--- NOTE | 2016-08-02 11:49 | Event Note ---
Date: 08/02/16 EGD revealed a pyloric channel ulcer and a large duodenal diverticulum. Colonoscopy revealed a large rectovaginal fistula with internal ulceration. I discussed this with the son who then informed me that this is actually chronic. She had XRT in [facility] for a suspected cancer about 8-10 years ago and developed a fistula. No cancer was actually present. She has been passing stool through the vagina and have pain with defecation since that time. Would obtain a COMMERCIAL ART INSTRUCTOR opinion as to whether there is any feasible remedy for this.
[2016-08-02] MEDS: ZESTRIL PO SCH (14:28)
[2016-08-02] MEDS: BENTYL PO SCH (14:28)
[2016-08-02] MEDS: ROCEPHIN/NS 1 GM/50 ML 1 GM/50 ML BAG IV SCH (14:29)
[2016-08-02] MEDS: NACL 0.9% 1000 ML 1,000 ML IV SCH (17:47)
[2016-08-03 07:44] LABS: Hematocrit 25.3 % (30.3-42.9); Hemoglobin 8.4 gm/dl (10.1-14.3); Mean Corpuscular HGB Conc 33 % (30-34); Mean Corpuscular Hemoglobin 27 pg (28-32); Mean Corpuscular Volume 83 fl (79-97); Platelet Count 336 K/mm3 (140-440); Red Blood Count 3.05 M/mm3 (3.65-5.03); Red Cell Distribution Width 16.9 % (13.2-15.2); White Blood Count 7.5 K/mm3 (4.5-11.0)
[2016-08-03 07:49] LABS: Anion Gap 14 mmol/L; BUN/Creatinine Ratio 16.25; Blood Urea Nitrogen 13 mg/dL (7-17); Calcium 7.7 mg/dL (8.4-10.2); Carbon Dioxide 22 mmol/L (22-30); Chloride 105.9 mmol/L (98-107); Glucose 88 mg/dL (65-100); Potassium 3.9 mmol/L (3.6-5.0); Sodium 138 mmol/L (137-145)
--- NOTE | 2016-08-03 10:18 | Discharge Summary ---
Providers - Providers Date of Admission: 08/01/16 00:42 Date of discharge: 08/04/16 Attending physician: GRETCHEN RENTERIA 08/01/16 06:30 Consult to Physician [CONS] Routine Consulting Provider: MELIA PARKER Reason For Exam: GI bleed Place consult to:: DR. PARKER Notified:: ANSWERING SERVICES Phone number called:: [phone] Was contact made?: Yes If yes, spoke with:: TYRA Flores called:: 09:29 Comment:: GUERITA NOTIFIED 08/01/16 06:57 Physical Therapy Evaluation and Treat [CONS] Routine Comment: Reason For Exam: debility 08/01/16 14:36 Consult to Dietitian/Nutrition [CONS] Routine Physician Instructions: Reason For Exam: Reason for Consult: Malnutrition 08/02/16 12:42 Consult to Physician [CONS] Routine Consulting Provider: MKCINLEY SHEFFIELD Reason For Exam: rectovaginal fistula Place consult to:: Jason BOLIVAR Notified:: office Phone number called:: [phone] Was contact made?: Yes If yes, spoke with:: ELAYNE Time called:: 08:37 Comment:: ION BURROUGHS Primary care physician: SUPERVISOR [employer] Hospitalization Condition: Stable Hospital course: Patient is 80-year-old Norwegian-speaking woman with a history of [place], CVA, pancreatitis, coronary artery disease who presents with weakness, fatigue. Guaiac was positive with a hemoglobin of 4.9. EGD revealed a pyloric channel ulcer and a large duodenal diverticulum, biopsy was positive for H. pylori. Colonoscopy revealed a large rectovaginal fistula with internal ulceration. Per the patient'ds son this is actually chronic following XRT in [facility] for a suspected cancer about 8-10 years ago and then she developed a fistula. No cancer was actually present. She has been passing stool through the vagina and have pain with defecation since that time. Patient was instructed to follow up with outpatient PRACTICE MANAGERS. She was discharged home in stable condition. Her hemoglobin remained stable following 3 units of blood transfusion. She was given the treatment for H. pylori with triple regimen for 2 weeks. Patient' s other chronic medical problems were stable during this entire hospitalization. Discharge diagnosis: -Acute GI blood loss anemia status post blood transfusion: Consulted gastroenterology, monitor H&H closely -Hyperkalemia, mild, resolved with iv fluid - Positive H. Pylori, we'll continue triple therapy for 2 weeks -Severe protein calorie malnutrition with albumin 2.5: counselled for dietary habit -Hyponatremia, dehydration: resolved with ivf -Hypotension, mild, held BP meds -Unintentional weight lost, likely from PUD with h. pylori infection -DVT prophylaxis: SCDs only due to GI blood loss Disposition: DC-01 TO HOME OR SELFCARE Time spent for discharge: 35 minutes Core Measure Documentation - Palliative Care Palliative Care/ Comfort Measures: Not Applicable - Core Measures Any of the following diagnoses?: none Exam - Physical Exam Narrative exam: GEN: Cachectic NAD, AWAKE, ALERT, ORIENTATED x1 CVS: RRR, NORMAL S1S2 LUNGS/CHEST: CTA B, NORMAL CHEST EXPANSION B, GOOD AIR ENTRY B ABD: SOFT, NTND, GBS, NO REBOUND OR GUARDING EXT/SKIN: NO SIGNIFICANT EDEMA OR RASH MSK: FROM X 4 EXTREMITIES NEURO: CN 2-12 GROSSLY INTACT, NO FOCAL DEFICITS PSY: CALM - Constitutional Vitals: Temp Pulse Resp BP Pulse Ox 98.4 F 61 18 114/55 95 08/03/16 07:40 08/03/16 07:40 08/03/16 07:40 08/03/16 07:40 08/03/16 07:40 Plan Activity: advance as tolerated Weight Bearing Status: Non-Weight Bearing Diet: regular Additional Instructions: Follow-up with GI in 2-3 weeks Follow up with: PRIMARY CARE, [Primary Care Provider] - 3-5 Days Prescriptions: Amoxicillin 1,000 mg PO Q12H 14 Days Clarithromycin [Biaxin] 500 mg PO BID #28 tab Pantoprazole [Protonix TAB] 40 mg PO BID #90 tablet
[2016-08-03] MEDS: NACL 0.9% 1000 ML 1,000 ML IV SCH ×2 (10:32→22:34)
[2016-08-03] MEDS: ROCEPHIN/NS 1 GM/50 ML 1 GM/50 ML BAG IV SCH (10:33)
[2016-08-03] MEDS: PROTONIX PO SCH ×2 (10:34→22:34)
[2016-08-03] MEDS: COREG PO SCH ×3 (10:34→22:35)
[2016-08-03] MEDS: BENTYL PO SCH (10:34)
[2016-08-03] MEDS: ZESTRIL PO SCH (10:34)
--- NOTE | 2016-08-03 11:53 | Gastroenterology Progress Note ---
Assessment and Plan 1. melena -S/P EGD- revealed a pyloric channel ulcer and large diverticulum -S/P colonoscopy- revealed rectovaginal fistula with internal ulceration- consulted SIGNS AND DISPLAYS SALES REPRESENTATIVE for evaluation and treatment -HGB stable with slight trend down from 9 to 8.4 today- will continue to monitor -no active signs of bleeding per nursing- BM x 1 yesterday without melena -continue daily protonix -will follow Subjective Date of service: 08/03/16 Principal diagnosis: melena Interval history: Patient resting in bed, no acute distress. No signs of active bleeding over night per nursing. Objective - Constitutional Vitals: Temp Pulse Resp BP Pulse Ox 98.4 F 80 18 110/56 95 08/03/16 07:40 08/03/16 10:48 08/03/16 07:40 08/03/16 10:48 08/03/16 07:40 General appearance: no acute distress - EENT Eyes: PERRL, EOM intact ENT: hearing intact - Respiratory Respiratory: bilateral: CTA - Cardiovascular Rhythm: regular Heart Sounds: Present: S1 & S2 - Extremities Extremities: No edema - Gastrointestinal General gastrointestinal: Present: soft, non-tender, non-distended, normal bowel sounds - Integumentary Integumentary: Present: warm, dry - Neurologic Neurological: alert and oriented x3 - Psychiatric Psychiatric: appropriate mood/affect, cooperative - Labs CBC & Chem 7: 08/03/16 07:07 08/03/16 07:07 Labs: Laboratory Results - last 24 hr 08/03/16 08/03/16 07:07 07:07 WBC 7.5 RBC 3.05 L Hgb 8.4 L Hct 25.3 L MCV 83 MCH 27 L MCHC 33 RDW 16.9 H Plt Count 336 Sodium 138 Potassium 3.9 Chloride 105.9 Carbon Dioxide 22 Anion Gap 14 BUN 13 Creatinine 0.8 Estimated GFR > 60 BUN/Creatinine Ratio 16.25 Glucose 88 Calcium 7.7 L
--- NOTE | 2016-08-03 17:22 | Progress Note ---
Assessment and Plan Patient is 80-year-old [place]ian-speaking woman with a history of [place], CVA, pancreatitis, coronary artery disease who presents with weakness, fatigue. Guaiac positive with a hemoglobin of 4.9. 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 She has been passing stool through the vagina and have pain with defecation since that time. consulted ADULT SCHOOL COUNSELOR opinion as to whether there is any feasible remedy for this. Hyperkalemia, mild, continue to monitor Severe protein calorie malnutrition with albumin 2.5: Consulted Dietitian Hyponatremia, dehydration: cont ivf Hypotension, mild, this maybe her baseline DVT prophylaxis: SCDs only due to GI blood loss Disposition: home in the am if H and H stable Subjective Date of service: 08/03/16 Principal diagnosis: melena Interval history: Patient seen and examined. Overnight uneventful. discussed plan of care with pt' s son at bedside Objective - Exam Narrative Exam: GEN: Cachectic NAD, AWAKE, ALERT, ORIENTATED x1 CVS: RRR, NORMAL S1S2 LUNGS/CHEST: CTA B, NORMAL CHEST EXPANSION B, GOOD AIR ENTRY B ABD: SOFT, NTND, GBS, NO REBOUND OR GUARDING EXT/SKIN: NO SIGNIFICANT EDEMA OR RASH MSK: FROM X 4 EXTREMITIES NEURO: CN 2-12 GROSSLY INTACT, NO FOCAL DEFICITS PSY: CALM - Constitutional Vitals: Vital Signs - 12hr 08/03/16 08/03/16 08/03/16 07:40 10:48 15:00 Temperature 98.4 F 98.8 F Pulse Rate [ 61 80 60 Right Radial] Respiratory 18 18 Rate Blood Pressure 114/55 110/56 131/61 [Right Arm] O2 Sat by Pulse 95 97 Oximetry - Labs CBC & Chem 7: 08/03/16 07:07 08/03/16 07:07 Labs: Abnormal lab results 08/03/16 08/03/16 Range/Units 07:07 07:07 RBC 3.05 L (3.65-5.03) M/mm3 Hgb 8.4 L (10.1-14.3) gm/dl Hct 25.3 L (30.3-42.9) % MCH 27 L (28-32) pg RDW 16.9 H (13.2-15.2) % Calcium 7.7 L (8.4-10.2) mg/dL
[2016-08-04 08:16] LABS: Basophils % (Auto) 0.7 % (0.0-1.8); Eosinophils % (Auto) 2.5 % (0.0-4.3); Hematocrit 26.1 % (30.3-42.9); Hemoglobin 8.6 gm/dl (10.1-14.3); Mean Corpuscular HGB Conc 33 % (30-34); Mean Corpuscular Hemoglobin 28 pg (28-32); Mean Corpuscular Volume 84 fl (79-97); Platelet Count 314 K/mm3 (140-440); Red Cell Distribution Width 16.3 % (13.2-15.2); White Blood Count 6.7 K/mm3 (4.5-11.0)
[2016-08-04 09:17] LABS: Anion Gap 14 mmol/L; Blood Urea Nitrogen 14 mg/dL (7-17); Calcium 7.8 mg/dL (8.4-10.2); Carbon Dioxide 22 mmol/L (22-30); Glucose 85 mg/dL (65-100); Potassium 3.7 mmol/L (3.6-5.0); Sodium 138 mmol/L (137-145)
[2016-08-04 09:26] VITALS: BP 119/39
[2016-08-04] MEDS: ROCEPHIN/NS 1 GM/50 ML 1 GM/50 ML BAG IV SCH (11:05)
[2016-08-04] MEDS: COREG PO SCH (11:08)
[2016-08-04] MEDS: ZESTRIL PO SCH (11:09)
[2016-08-04] MEDS: PROTONIX PO SCH (11:09)
[2016-08-04] MEDS: BENTYL PO SCH (12:47)
== END 2016-08-04 13:52 | disposition home or self-care (01) | DRG 377 ==
LOC: ED 21:23 → 3A 08-01 00:42 → CC2 08-03 20:38 → 3A 08-03 20:57 → CC2 08-03 21:33
PROVIDERS: ADMIT Internal Medicine; ATTEND Internal Medicine
PROC: 30233N1 Transfusion of Nonautologous Red Blood Cells into Peripheral Vein, Percutaneous Approach (ICD-10-PCS; 2016-07-31)
PROC: 0DB78ZX Excision of Stomach, Pylorus, Via Natural or Artificial Opening Endoscopic, Diagnostic (ICD-10-PCS; principal; 2016-08-02)
PROC: 0DJD8ZZ Inspection of Lower Intestinal Tract, Via Natural or Artificial Opening Endoscopic (ICD-10-PCS; 2016-08-02)
DX: K57.51 Diverticulosis of both small and large intestine without perforation or abscess with bleeding (principal); E43 Unspecified severe protein-calorie malnutrition; N82.3 Fistula of vagina to large intestine; D62 Acute posthemorrhagic anemia; N39.0 Urinary tract infection, site not specified; E87.1 Hypo-osmolality and hyponatremia; K25.4 Chronic or unspecified gastric ulcer with hemorrhage; N28.9 Disorder of kidney and ureter, unspecified; I25.10 Atherosclerotic heart disease of native coronary artery without angina pectoris; I25.2 Old myocardial infarction; E87.5 Hyperkalemia; E86.0 Dehydration; I95.9 Hypotension, unspecified; Z68.25 Body mass index [BMI] 25.0-25.9, adult; Z86.73 Personal history of transient ischemic attack (TIA), and cerebral infarction without residual deficits
CPT/HCPCS: 36415; 36430; 70450; 71020; 72125; 74020; 80048; 80053; 80307; 80320; 81001; 82140; 82607; 82747; 83550; 83690; 83735; 84443; 84484; 85014; 85018; 85025; 85027; 85610; 85730; 86850; 86900; 86901; 86920; 87086; 88305; 88342; 93005; 93010; 96374; G0480; J0696; J2704; J7030; J7040; P9016